=== PATIENT | female | born 1945 | race Caucasian/White ===

== ENCOUNTER 2018-04-23 11:56 | Day surgery (SDC) | payer MEDICARE, OTHER ==
[~2018-04-23] VITALS: Ht 162.6 cm; Wt 107.8 kg
[2018-04-23] VITALS (10 sets, daily range): BP systolic 107–141; BP diastolic 69–84
[2018-04-23] MEDS ORDERED: normal saline 1000ml 1,000 ML IV SCH (12:20)
[2018-04-23] MEDS ORDERED: ALPR-624 PO (12:34)
[2018-04-23] MEDS ORDERED: ATEN-169 PO (12:35)
[2018-04-23] MEDS ORDERED: ATOR80TA PO (12:35)
[2018-04-23] MEDS ORDERED: OMEP40CA37 PO (12:38)
[2018-04-23] MEDS ORDERED: HYDR12.5 PO (12:38)
[2018-04-23] MEDS ORDERED: VENL150C2 PO (12:44)
[2018-04-23] MEDS ORDERED: DIPH50LI26 PO (12:45)
[2018-04-23] MEDS ORDERED: ASPI-1264 PO (12:46)
[2018-04-23] MEDS ORDERED: IBUP-24 PO (12:47)
[2018-04-23] MEDS ORDERED: CARI250T PO (12:49)
[2018-04-23] MEDS ORDERED: NITR0.4T51 SL (12:50)
[2018-04-23] MEDS ORDERED: diphenhydrAMINE 25mg capsule PO PRN (13:05)
[2018-04-23 13:21] LABS: BASOPHILS % (AUTO) 0.4 % (0-1); EOSINOPHILS # (AUTO) 0.1 X10'3 (0-0.9); EOSINOPHILS % (AUTO) 1.3 % (0-6); HEMATOCRIT 44.9 % (35.0-45.0); HEMOGLOBIN 14.6 g/dl (12.0-16.0); LYMPHOCYTES # (AUTO) 1.2 X10'3 (1.1-4.8); MEAN CORPUSCULAR HEMOGLOBIN 30.4 PG (27.0-31.0); MEAN CORPUSCULAR HGB CONC 32.4 % (33.0-36.5); MEAN CORPUSCULAR VOLUME 93.6 FL (78-98); MONOCYTES # (AUTO) 0.5 X10'3 (0-0.9); NEUTROPHILS # (AUTO) 6.1 X10'3 (1.8-7.7); NEUTROPHILS % (AUTO) 77.3 % (42-75); PLATELET COUNT 314 X10'3 (140-440); RED CELL DISTRIBUTION WIDTH 13.6 % (11.5-14.5); WHITE BLOOD COUNT 7.9 X10'3 (4.5-11.0)
[2018-04-23 13:26] LABS: INR 1.1 INR; PROTHROMBIN TIME 10.8 SECONDS (9.0-12.0)
[2018-04-23 13:30] LABS: ALBUMIN 2.9 G/DL (3.4-5.0); ANION GAP 9 (8-16); BLOOD UREA NITROGEN 14 MG/DL (7-18); BUN/CREATININE RATIO 12.3 (6.6-38.0); CALCIUM 8.8 MG/DL (8.5-10.1); CHLORIDE 99 MMOL/L (99-107); CREATININE 1.14 MG/DL (0.40-0.90); GLUCOSE 117 MG/DL (70-104); MAGNESIUM 2.2 MG/DL (1.5-2.4); SODIUM 141 MMOL/L (135-145); TOTAL CARBON DIOXIDE 33.1 MMOL/L (24-32); eGFR 47 ML/MIN
[2018-04-23] MEDS ORDERED: potassium Cl 20 mEq SR tablet PO STA (13:39)
[2018-04-23] MEDS ORDERED: LIDOcaine 1% (10mg/ml)w/preservative injection 20ml MDV ONE (13:49)
[2018-04-23] MEDS ORDERED: iohexol 350MG/ML 100ml bottle IV ONE ×2 (13:50→15:37)
[2018-04-23] MEDS ORDERED: fentaNYL/PF 50MCG/1 ML 2ML syringe ONE ×2 (13:50→15:15)
[2018-04-23] MEDS ORDERED: iohexol 350 MG/ML 50ML vial IV ONE (13:50)
[2018-04-23] MEDS ORDERED: midazolam 2 mg/2 ml injection ONE (13:50)
[2018-04-23] MEDS ORDERED: proCHLORperazine 10 MG/2 ml inj ONE (14:14)
[2018-04-23] MEDS ORDERED: heparin 1,000unit/ml 10ml vial 10 ML ONE (14:29)
[2018-04-23] MEDS ORDERED: iohexol 350 MG/1 ML 200ml bottle ONE (14:44)
[2018-04-23] MEDS ORDERED: nitroGLYCERIN-Tridil 50MG/D5W 250 ML IV ONE (15:15)
[2018-04-23] MEDS ORDERED: ticagrelor 90mg tablet ONE (15:51)
== END 2018-04-23 19:45 | disposition home or self-care (01) ==
LOC: SSTAY O 11:56
PROVIDERS: ATTEND Internal Medicine Cardiovascular Disease
DX: I25.10 Atherosclerotic heart disease of native coronary artery without angina pectoris (principal); I10 Essential (primary) hypertension; E78.5 Hyperlipidemia, unspecified; I73.9 Peripheral vascular disease, unspecified; Z87.891 Personal history of nicotine dependence; Z98.61 Coronary angioplasty status; Z88.8 Allergy status to other drugs, medicaments and biological substances
CPT/HCPCS: 36415; 80048; 83735; 85025; 85610; 93005; 93458; 99152; 99153; A6257; C1874; C1887; C9600; J0780; J1644; J2001; J2250; J3010; J7030; Q0163; Q9967; A4620; C1725; C1760; C1769; C1894; J3490